=== PATIENT | male | born 1995 | race Caucasian/White ===

== ENCOUNTER 2019-01-19 12:07 | Emergency (ER) | payer BC, OTHER ==
[~2019-01-19] VITALS: Ht 178 cm; Wt 96.8 kg
--- NOTE | 2019-01-19 12:24 | ED General ---
General Chief Complaint: Cough/Cold/Flu Symptoms Stated Complaint: LT SIDE PAIN; LT SIDE FACIAL PAIN History of Present Illness Date Seen by Provider: Jan 19, 2019 Time Seen by Provider: 12:21 Initial Comments Patient presenting to emergency department for evaluation of multiple symptoms including cough congestion and chest pain headache abdominal pain chills generalized malaise and fatigue. Patient says the cough isn't productive of a yellowish sputum and he has felt hot but has not taken his temperature. Chest pain as a tightness across his entire lower chest. Abdominal pain is on the left side of his abdomen and goes up and down and is worse with movements. Headache is diffuse and is not causing him any unilateral weakness numbness or tingling vision changes or other neurologic complaints. He says that he had a history of asthma as a child but takes no medications on a regular basis now. He is in no obvious distress with normal vital signs other than mild tachycardia noted. Allergies and Home Medications Allergies Coded Allergies: No Known Drug Allergies (Unverified , 01/19/19) Patient Home Medication List Home Medication List Reviewed: Yes Review of Systems Review of Systems Constitutional: chills EENTM: nose congestion Respiratory: cough, short of breath Cardiovascular: chest pain Gastrointestinal: abdominal pain Genitourinary: no symptoms reported Musculoskeletal: no symptoms reported Skin: no symptoms reported Psychiatric/Neurological: No Symptoms Reported All Other Systems Reviewed Negative Unless Noted: Yes Past Ocgnind-Skmezw-Akemis Hx Patient Social History Recent Foreign Travel: No Physical Exam Vital Signs Vital Signs - First Documented 01/19/19 12:10 Temp 36.2 Pulse 112 Resp 16 B/P (MAP) 149/83 (105) Pulse Ox 99 O2 Delivery Room Air Capillary Refill : Height, Weight, BMI Height: '" Weight: lbs. oz. kg; BMI Method: General Appearance: No Apparent Distress, WD/WN Eyes: Bilateral Eye Normal Inspection HEENT: Pharyngeal Erythema Neck: Supple Respiratory: No Respiratory Distress, Decreased Breath Sounds, Wheezing Cardiovascular: Normal Peripheral Pulses, Tachycardia Gastrointestinal: Non Tender, Soft Back: Normal Inspection Extremity: No Pedal Edema Neurologic/Psychiatric: Alert, Oriented x3 Skin: Warm/Dry Progress/Results/Core Measures Suspected Sepsis SIRS Temperature: Pulse: Respiratory Rate: Laboratory Tests 01/19/19 12:30: White Blood Count 12.5H Blood Pressure / Mean: Laboratory Tests 01/19/19 12:30: Creatinine 0.94, Platelet Count 210, Total Bilirubin 1.4H Results/Orders Lab Results Laboratory Tests Test 01/19/19 12:30 01/19/19 12:50 Range/Units White Blood Count 12.5 H 4.3-11.0 10^3/uL Red Blood Count 4.97 4.35-5.85 10^6/uL Hemoglobin 14.9 13.3-17.7 G/DL Hematocrit 41 40-54 % Mean Corpuscular Volume 83 80-99 FL Mean Corpuscular Hemoglobin 30 25-34 PG Mean Corpuscular Hemoglobin Concent 36 32-36 G/DL Red Cell Distribution Width 12.2 10.0-14.5 % Platelet Count 210 130-400 10^3/uL Mean Platelet Volume 10.2 7.4-10.4 FL Neutrophils (%) (Auto) 84 H 42-75 % Lymphocytes (%) (Auto) 6 L 12-44 % Monocytes (%) (Auto) 8 0-12 % Eosinophils (%) (Auto) 2 0-10 % Basophils (%) (Auto) 0 0-10 % Neutrophils # (Auto) 10.5 H 1.8-7.8 X 10^3 Lymphocytes # (Auto) 0.8 L 1.0-4.0 X 10^3 Monocytes # (Auto) 1.0 0.0-1.0 X 10^3 Eosinophils # (Auto) 0.2 0.0-0.3 10^3/uL Basophils # (Auto) 0.1 0.0-0.1 10^3/uL Neutrophils % (Manual) 80 % Lymphocytes % (Manual) 7 % Monocytes % (Manual) 3 % Eosinophils % (Manual) 2 % Band Neutrophils 8 % Toxic Granulation 1+ Blood Morphology Comment NORMAL D-Dimer 0.24 0.00-0.49 UG/ML Sodium Level 135 135-145 MMOL/L Potassium Level 3.9 3.6-5.0 MMOL/L Chloride Level 100 98-107 MMOL/L Carbon Dioxide Level 25 21-32 MMOL/L Anion Gap 10 5-14 MMOL/L Blood Urea Nitrogen 11 7-18 MG/DL Creatinine 0.94 0.60-1.30 MG/DL Estimat Glomerular Filtration Rate > 60 BUN/Creatinine Ratio 12 Glucose Level 109 H 70-105 MG/DL Calcium Level 9.7 8.5-10.1 MG/DL Corrected Calcium 8.5-10.1 MG/DL Total Bilirubin 1.4 H 0.1-1.0 MG/DL Aspartate Amino Transf (AST/SGOT) 14 5-34 U/L Alanine Aminotransferase (ALT/SGPT) 13 0-55 U/L Alkaline Phosphatase 78 40-136 U/L Troponin I < 0.30 <0.30 NG/ML Pro-B-Type Natriuretic Peptide < 5.0 <75.0 PG/ML Total Protein 7.6 6.4-8.2 GM/DL Albumin 4.8 H 3.2-4.5 GM/DL Lipase 17 8-78 U/L Group A Streptococcus Screen NEGATIVE NEGATIVE Micro Results Microbiology 01/19/19 Influenza Types A,B Antigen ([facility]) - Final, Complete My Orders Orders - JOSE FREEMAN DO Cbc With Automated Diff (01/19/19 12:17) Comprehensive Metabolic Panel (01/19/19 12:17) Influenza A And B Antigens (01/19/19 12:17) Fibrin Degradation Products (01/19/19 12:17) Lipase (01/19/19 12:17) Probnp Fs (01/19/19 12:17) Troponin I Fs (01/19/19 12:17) Rapid Strep A Screen (01/19/19 12:17) Ekg Tracing (01/19/19 12:17) Chest 1 View Ap/Pa Only (01/19/19 12:17) Lorazepam Injection (Ativan Injection) (01/19/19 12:30) Aspirin Chewable Tablet (Baby Aspirin Ch (01/19/19 12:30) Albuterol/Ipra Inhalation Soln (Duoneb I (01/19/19 12:30) Methylprednisolone Sod Succ (Solu-Medrol (01/19/19 12:30) Ketorolac Injection (Toradol Injection) (01/19/19 12:30) Ns Iv 1000 Ml (Sodium Chloride 0.9%) (01/19/19 12:30) Svn Small Volume Nebulizer (01/19/19 12:17) Manual Differential (01/19/19 12:30) Medications Given in ED Current Medications Medications Dose Ordered Sig/Elzbieta Route Start Time Stop Time Status Last Admin Dose Admin Albuterol/ Ipratropium 3 ml ONCE ONCE INH 01/19/19 12:30 01/19/19 12:31 DC 01/19/19 12:43 3 ML Aspirin 324 mg ONCE ONCE PO 01/19/19 12:30 01/19/19 12:31 DC 01/19/19 12:43 324 MG Ketorolac Tromethamine 15 mg ONCE ONCE IVP 01/19/19 12:30 01/19/19 12:31 DC 01/19/19 12:43 15 MG Lorazepam 1 mg ONCE ONCE IVP 01/19/19 12:30 01/19/19 12:31 DC 01/19/19 12:43 1 MG Methylprednisolone Sodium Succinate 125 mg ONCE ONCE IVP 01/19/19 12:30 01/19/19 12:31 DC 01/19/19 12:42 125 MG Vital Signs/I&O 01/19/19 01/19/19 12:10 12:10 Temp 36.2 Pulse 112 Resp 16 B/P (MAP) 149/83 (105) Pulse Ox 99 O2 Delivery Room Air Capillary Refill : Progress Note : Progress Note Patient's symptoms all resolved after getting a breathing treatment Ativan Toradol and aspirin. He is also given a dose of steroid as well. Patient's repeat exam is benign with improved aeration of his lungs and his repeat vital signs were normal as well. Given patient appears well with normal vital signs benign physical exam and workup he'll be discharged in stable condition told to follow primary care provider within 2-3 days to ensure improvement and come back to the ED sooner with worsening pain shortness of breath or other general concerns. Patient aware and agreeable with plan for discharge and verbalized understanding of the above instructions. Departure Impression Primary Impression: Upper respiratory infection Qualified Codes: J06.9 - Acute upper respiratory infection, unspecified Additional Impression: Wheezing Disposition: 01 HOME, SELF-CARE Condition: Stable Departure-Patient Inst. Referrals: NO,LOCAL PHYSICIAN (PCP/Family) Primary Care Physician Patient Instructions: Acute Bronchitis, Adult (DC) Scripts Prednisone (Prednisone) 20 Mg Tab 40 MG PO DAILY, #8 TAB 0 Refills Prov: JOSE FREEMAN DO 01/19/19 Albuterol Sulfate (PROAIR HFA) 1 Puff Puff 2 PUFF IH Q4H, #1 INH 1 PUFF = 90 MCG Prov: JOSE FREEMAN DO 01/19/19 JOSE FREEMAN DO Jan 19, 2019 12:24 POS
[2019-01-19] MEDS ORDERED: ASPIRIN 81 MG CHEW (CHILDREN'S ASA) PO ONE (12:30)
[2019-01-19] MEDS ORDERED: methylPREDNISolone 125 MG (Solu-MEDROL) VIAL IVP ONE (12:30)
[2019-01-19] MEDS ORDERED: RT-ALBUTEROL/IPRATROPIUM 3 ML (DUONEB) VIAL INH ONE (12:30)
[2019-01-19] MEDS ORDERED: NS IV 1000 ML 1,000 ML IV SCH (12:30)
[2019-01-19] MEDS ORDERED: KETOROLAC 15 MG/ML VIAL IVP ONE (12:30)
[2019-01-19] MEDS ORDERED: LORazepam INJ 2 MG/ML (ATIVAN) VIAL IVP ONE (12:30)
--- NOTE | 2019-01-19 12:54 | Diagnostic Imaging Report ---
INDICATION: Cough and congestion. EXAMINATION: Portable chest. FINDINGS: The lungs are well aerated without air trapping. There are no infiltrates. The heart is not enlarged. No pulmonary edema or hilar adenopathy. No pneumothorax or pleural effusion. No bony abnormalities. IMPRESSION: Normal portable chest. Dictated by: Dictated on workstation # [id number]
[2019-01-19 13:30] LABS: ALANINE AMINOTRANSFERASE 13 U/L (0-55); ALKALINE PHOSPHATASE 78 U/L (40-136); BILIRUBIN,TOTAL 1.4 MG/DL (0.1-1.0); BUN/CREATININE RATIO 12; CALCIUM 9.7 MG/DL (8.5-10.1); CARBON DIOXIDE 25 MMOL/L (21-32); CHLORIDE 100 MMOL/L (98-107); CREATININE SERUM 0.94 MG/DL (0.60-1.30); GFR ESTIMATED > 60; GLUCOSE 109 MG/DL (70-105); POTASSIUM 3.9 MMOL/L (3.6-5.0); SODIUM 135 MMOL/L (135-145)
[2019-01-19 13:31] LABS: ALBUMIN 4.8 GM/DL (3.2-4.5); LIPASE 17 U/L (8-78); TOTAL PROTEIN 7.6 GM/DL (6.4-8.2)
[2019-01-19 13:47] LABS: BASOPHILS % (AUTO) 0 % (0-10); EOSINOPHILS % (AUTO) 2 % (0-10); HEMATOCRIT 41 % (40-54); HEMOGLOBIN 14.9 G/DL (13.3-17.7); LYMPHOCYTES # (AUTO) 0.8 X 10^3 (1.0-4.0); LYMPHOCYTES % (AUTO) 6 % (12-44); MEAN CORPUSCULAR HEMOGLOBIN 30 PG (25-34); MEAN CORPUSCULAR HGB CONC 36 G/DL (32-36); MEAN CORPUSCULAR VOLUME 83 FL (80-99); MEAN PLATELET VOLUME 10.2 FL (7.4-10.4); MONOCYTES % (AUTO) 8 % (0-12); NEUTROPHILS # (AUTO) 10.5 X 10^3 (1.8-7.8); NEUTROPHILS % (AUTO) 84 % (42-75); PLATELET COUNT 210 10^3/uL (130-400); RED CELL DISTRIBUTION WIDTH 12.2 % (10.0-14.5); WHITE BLOOD COUNT 12.5 10^3/uL (4.3-11.0)
[2019-01-19 13:48] LABS: BASOPHILS # (AUTO) 0.1 10^3/uL (0.0-0.1); EOSINOPHILS # (AUTO) 0.2 10^3/uL (0.0-0.3)
[2019-01-19 14:09] LABS: BAND NEUTROPHILS 8 %; EOSINOPHILS % (MANUAL) 2 %; LYMPHOCYTES % (MANUAL) 7 %; MONOCYTES % (MANUAL) 3 %; NEUTROPHILS % (MANUAL) 80 %; RBC MORPH NORMAL; TOXIC GRANULATION/VACUOLAZATIO 1+
[2019-01-19] MEDS ORDERED: RT-ALBUINH IH ×2 (14:22→15:02)
[2019-01-19] MEDS ORDERED: PRD20T PO ×2 (14:22→15:02)
[2019-01-19 14:35] VITALS: BP 137/57
== END 2019-01-19 14:35 | disposition home or self-care (01) ==
LOC: ER FS 12:09 → EDBD 12:09 → ER FS 14:35
DX: J06.9 Acute upper respiratory infection, unspecified (principal); J45.909 Unspecified asthma, uncomplicated
CPT/HCPCS: 36415; 71045; 80053; 83690; 83880; 84484; 85007; 85027; 85379; 87430; 87804; 93005; 96374; 96375

== ENCOUNTER 2021-02-23 06:01 | Emergency (ER) | payer BC, OTHER ==
[~2021-02-23 06:01] MED LIST: PRD20T PO; RT-ALBUINH IH
--- NOTE | 2021-02-23 06:15 | ED Cough/URI ---
General Chief Complaint: Cough/Cold/Flu Symptoms Stated Complaint: BODY ACHES;NAUSEA;SOB History of Present Illness Date Seen by Provider: Feb 23, 2021 Time Seen by Provider: 06:08 Initial Comments 25-year-old male presents with cough, body aches, nausea, chills, fatigue and just not feeling well. Patient reports that the symptoms started around 3 PM yesterday. He has tried some Tylenol. Patient has not vomited. Allergies and Home Medications Allergies Coded Allergies: No Known Drug Allergies (Unverified , 01/19/19) Patient Home Medication List Home Medication List Reviewed: Yes Albuterol Sulfate (Proair Hfa) 1 Puff Puff, 2 PUFF IH Q4H Prescribed by: JOSE FREEMAN on 01/19/19 1422 Albuterol Sulfate (Proair Hfa) 1 Puff Puff, 2 PUFF IH Q4H Prescribed by: JOSE FREEMAN on 01/19/19 1502 Prednisone (Prednisone) 20 Mg Tab, 40 MG PO DAILY Prescribed by: JOSE FREEMAN on 01/19/19 1422 Prednisone (Prednisone) 20 Mg Tab, 40 MG PO DAILY Prescribed by: JOSE FREEMAN on 01/19/19 1502 Review of Systems Review of Systems Constitutional: chills Respiratory: cough, short of breath Cardiovascular: No chest pain, No palpitations Gastrointestinal: No abdominal pain; nausea; No vomiting Genitourinary: no symptoms reported Skin: no symptoms reported; No rash Psychiatric/Neurological: No Symptoms Reported Hematologic/Lymphatic: No Symptoms Reported Past Fmeolya-Wdvful-Edwnvl Hx Patient Social History Tobacco Use?: No Substance use?: No Alcohol Use?: No Pt feels they are or have been: No Seasonal Allergies Seasonal Allergies: No Past Medical History Surgeries: No Respiratory: No Cardiac: No Neurological: No Genitourinary: No Gastrointestinal: No Musculoskeletal: No Endocrine: No HEENT: No Cancer: No Psychosocial: No Integumentary: No Blood Disorders: No Physical Exam Vital Signs - First Documented 02/23/21 06:05 Temp 37.6 Pulse 100 Resp 18 B/P (MAP) 170/99 (122) Pulse Ox 96 O2 Delivery Room Air Capillary Refill : Height: '" Weight: lbs. oz. kg; 30.00 BMI Method: General Appearance: WD/WN, no apparent distress Neck: full range of motion, supple Respiratory: lungs clear, normal breath sounds, no respiratory distress, no accessory muscle use Cardiovascular: normal peripheral pulses, regular rate, rhythm Gastrointestinal: non tender, soft Neurologic/Psychiatric: alert, normal mood/affect, oriented x 3 Skin: normal color, warm/dry Progress/Results/Core Measures Suspected Sepsis SIRS Temperature: Pulse: Respiratory Rate: Blood Pressure / Mean: Results/Orders Lab Results Laboratory Tests Test 02/23/21 06:10 Range/Units Influenza Type A Antigen NEGATIVE NEGATIVE Influenza Type B Antigen NEGATIVE NEGATIVE My Orders Orders - JANEY EUCEDA DO Covid 19 Inhouse Test (02/23/21 06:16) Influenza A & B Antigens (02/23/21 06:16) Vital Signs/I&O 02/23/21 02/23/21 06:05 06:41 Temp 37.6 37.6 Pulse 100 99 Resp 18 18 B/P (MAP) 170/99 (122) 158/88 Pulse Ox 96 97 O2 Delivery Room Air Room Air Capillary Refill : Progress Note : Progress Note Patient negative for influenza. Patient with suspected COVID. Discussed supportive care with him. Patient stable and discharged home patient is O2 saturations in the upper 90s throughout his stay in the ER Departure Impression Primary Impression: Suspected COVID-19 virus infection Disposition: 01 HOME, SELF-CARE Condition: Stable Departure-Patient Inst. Referrals: NO,LOCAL PHYSICIAN (PCP/Family) Primary Care Physician Patient Instructions: COVID-19 ED Add. Discharge Instructions: Tylenol or ibuprofen as needed for fever or body aches Drink plenty of fluids All discharge instructions reviewed with patient and/or family. Voiced understanding. Scripts Ondansetron (Ondansetron Odt) 4 Mg Tab.rapdis 4 MG PO Q6H PRN for NAUSEA/VOMITING, #20 TAB 0 Refills Prov: JANEY EUCEDA DO 02/23/21 JANEY EUCEDA DO Feb 23, 2021 06:15
[2021-02-23 06:41] VITALS: BP 158/88
[2021-02-23] MEDS ORDERED: ONDA4TAB11 PO (06:45)
== END 2021-02-23 06:47 | disposition home or self-care (01) ==
LOC: EDUNIT# 06:01 → ER FS 06:04
DX: U07.1 COVID-19 (principal)
CPT/HCPCS: 87636; 87804; 99283